=== PATIENT | male | born 1980 ===

== ENCOUNTER 2018-01-19 01:14 | Emergency (ER) | payer OTHER, SELFPAY ==
[2018-01-19] MEDS ORDERED: Sodium Chloride 0.9% 1,000 ML IV ONE ×2 (01:38→02:49)
--- NOTE | 2018-01-19 01:39 | C.PDOC ---
History Of Present Illness 37 year old male w/PMHx of IDDM presents to the ER for evaluation of diffuse abdominal pain and suprapubic discomfort associated with urinary frequency for the past month that has worsens today. Otherwise, pt denies fever, chills, recent illness, headache, dizziness, CP, SOB, dyspnea, palpitation, diaphoresis , nausea, or vomiting, change in appetite, back pain, hematuria, testicular swelling or pain. Ambulate to Ed for evaluation, not in any apparent distress.. Time Seen by Provider: 01/19/18 01:37 Chief Complaint (Nursing): Abdominal Pain History Per: Patient History/Exam Limitations: no limitations Onset/Duration Of Symptoms: Days Current Symptoms Are (Timing): Still Present Location Of Pain/Discomfort: Suprapubic Radiation Of Pain To:: None Quality Of Discomfort: Unable To Describe Associated Symptoms: denies: Fever, Chills, Nausea, Vomiting Exacerbating Factors: None Alleviating Factors: None Recent travel outside of the [place]: No Past Medical History Reviewed: Historical Data, Nursing Documentation, Vital Signs Vital Signs: Last Vital Signs Temp 98.7 F 01/19/18 04:38 Pulse 86 01/19/18 04:38 Resp 18 01/19/18 04:38 BP 120/77 01/19/18 04:38 Pulse Ox 99 01/19/18 04:48 - Medical History PMH: Diabetes, HTN Family History: States: Unknown Family Hx - Social History Hx Tobacco Use: Yes Hx Alcohol Use: No Hx Substance Use: No - Immunization History Hx Tetanus Toxoid Vaccination: No Hx Influenza Vaccination: No Hx Pneumococcal Vaccination: No Review Of Systems Constitutional: Negative for: Fever, Chills Gastrointestinal: Positive for: Abdominal Pain. Negative for: Nausea, Vomiting Genitourinary: Positive for: Frequency, Other (Hesitancy) Physical Exam - Physical Exam Appears: Well, Non-toxic, No Acute Distress Skin: Normal Color, Warm, Dry Head: Normacephalic Eye(s): bilateral: PERRL Nose: No Flaring, No Discharge Oral Mucosa: Moist, No Drooling Neck: Supple Chest: Symmetrical, No Tenderness Cardiovascular: Rhythm Regular, No Murmur, No JVD Respiratory: No Decreased Breath Sounds, No Accessory Muscle Use, No Rales, No Rhonchi, No Wheezing Gastrointestinal/Abdominal: Soft, Tenderness (Suprapubic, mild), No Distention, No Guarding, No Rebound Back: No CVA Tenderness Extremity: Normal ROM, No Pedal Edema, No Swelling Neurological/Psych: Oriented x3, Normal Speech ED Course And Treatment - Laboratory Results Result Diagrams: 01/19/18 01:53 01/19/18 01:53 Lab Interpretation: Normal O2 Sat by Pulse Oximetry: 99 (Room air) Pulse Ox Interpretation: Normal Progress Note: Blood work, urinalysis ordered. Hydration with IV fluids, toradol, and insulin administered. Pt was OBS in ED for 3 hours and reports moderate improvement in sx. On re-eval, pt is afebrile, hemodynamicaly stable. Ambulatory in ED with stable gait. PulsEOx 99% RA. ENT: no acute findings. Neck: Supple, (-) JVD, (-) carotid bruits B/L. Lungs: CTA B/L, BS dequal B/L. CVS: (+)S1S2, reg. Abd: benign, (-) guarding, (-) rebound. Neurologicaly intact. Blood owrk review, CBC- no acute abnormalities. CMP- hyperglycemia, AG 11. UA: (+) Glu, (-) WBC, (-) RBC, (-) ketones. repeat FSBS 104. Pt has clinical findings c/w hyperglycemia, suprapubic pain, nos. Pt advised. ref. to f/u with PMD in 2-3 days for re-evaluation. return to ED if any worsening or new changes. Disposition Counseled Patient/Family Regarding: Studies Performed, Diagnosis, Need For Followup - Disposition Referrals: Opal Bryant APN [Advanced Practice Nurse] - Disposition: HOME/ ROUTINE Disposition Time: 04:10 Condition: STABLE Additional Instructions: Encourage fluid Take medication as prescribed Follow up with PMD in 2-3 days for re-evaluation. Return to ED if any worsening or new changes. Instructions: Hyperglycemia, Adult Forms: [facility] (Greenlandic) Print Language: KAZAKH - Clinical Impression Clinical Impression: Hyperglycemia due to type 2 diabetes mellitus - Scribe Statement The provider has reviewed the documentation as recorded by the Scribe Fernando Gonzalez All medical record entries made by the Scribe were at my direction and personally dictated by me. I have reviewed the chart and agree that the record accurately reflects my personal performance of the history, physical exam, medical decision making, and the department course for this patient. I have also personally directed, reviewed, and agree with the discharge instructions and disposition.
[2018-01-19] MEDS ORDERED: Sodium Chloride 0.9% 1,000 ML ONE ×2 (01:46→03:07)
[2018-01-19 02:00] LABS: URINE BILIRUBIN NEGATIVE (NEGATIVE); URINE BLOOD NEGATIVE (NEGATIVE); URINE CLARITY Clear (Clear); URINE COLOR Straw (YELLOW); URINE GLUCOSE (UA) 3+ mg/dL (Normal); URINE LEUKOCYTE ESTERASE NEG Leu/uL (Negative); URINE PROTEIN NEGATIVE (NEGATIVE); URINE UROBILINOGEN NORMAL mg/dL (0.2-1.0)
[2018-01-19 02:11] LABS: ALB/GLOB RATIO 1.7 (1.0-2.1); ALBUMIN 4.2 g/dL (3.5-5.0); ALT/SGPT 51 U/L (21-72); AST/SGOT 20 U/L (17-59); BLOOD UREA NITROGEN 11 mg/dL (9-20); CALCIUM 8.7 mg/dl (8.6-10.4); GFR AFRICAN-AMERICAN > 60; GFR NON-AFRICAN AMERICAN > 60
[2018-01-19 02:30] LABS: BASO % 0.3 % (0.0-2.0); EOS # 0.1 K/uL (0.0-0.7); EOS % 2.1 % (0.0-4.0); HEMOGLOBIN 14.6 g/dL (12.0-18.0); LYMPH # 1.9 K/uL (1.0-4.3); LYMPH % 37.2 % (20.0-40.0); MEAN CELL VOLUME 93.6 fL (80.0-94.0); MEAN CORPUSCULAR HEMOGLOBIN 33.4 pg (27.0-31.0); MEAN CORPUSCULAR HGB CONC 35.7 g/dL (33.0-37.0); MEAN PLATELET VOLUME 9.4 fL (7.2-11.7); MONO # 0.3 K/uL (0.0-0.8); MONO % 6.7 % (0.0-10.0); NEUT # 2.8 K/uL (1.8-7.0); NEUT % 53.7 % (50.0-75.0); NRBC % 0.3 % (0.0-2.0); RBC 4.38 Mil/uL (4.40-5.90); RED CELL DISTRIBUTION WIDTH 12.2 % (11.5-14.5); WHITE BLOOD COUNT 5.2 K/uL (4.8-10.8)
[2018-01-19] MEDS ORDERED: (Novolin R) Insulin Human Regular 100 units/ml vial IV ONE (02:49)
[2018-01-19] MEDS ORDERED: (Novolin R) Insulin Human Regular 100 units/ml vial ONE (03:07)
[2018-01-19 04:39] VITALS: BP 120/77; PULSE 86; RESP 18; TEMP 98.7
[2018-01-19 04:45] VITALS: O2SAT 99
== END 2018-01-19 04:38 | disposition home or self-care (01) ==
LOC: C.ER 01:14
DX: R10.30 Lower abdominal pain, unspecified (principal); E11.65 Type 2 diabetes mellitus with hyperglycemia; Z79.4 Long term (current) use of insulin
CPT/HCPCS: 80053; 81001; 82948; 85025; 87040; 87086; 96361; 96374; 96375; 99284; C9113; J1885; J2405; J7030